=== PATIENT | female | born 1990 | race Caucasian/White ===

== ENCOUNTER 2017-03-07 11:52 | Emergency (ER) | payer OTHER ==
[~2017-03-07] VITALS: Ht 160 cm; Wt 69.3 kg
[~2017-03-07 11:52] MED LIST: BUSP5 PO; Z.0.BCPILL PO
[2017-03-07 11:57] VITALS: BP 133/86; PULSE 102; RESP 16; TEMP 98.9; O2SAT 100
[2017-03-07] MEDS ORDERED: LEXA5TAB PO (12:11)
[2017-03-07] MEDS ORDERED: BIRTH CONTROL (12:11)
[2017-03-07] MEDS ORDERED: [UNRECOGNIZED DRUG - OTHER] PO (12:11)
--- NOTE | 2017-03-07 12:15 | PD ---
HPI Chief Complaint: Abdominal Pain Time Seen by Provider: 12:04 Travel History International Travel<30 days: No Contact w/Intl Traveler<30days: No Traveled to known affect area: No History of Present Illness HPI 27 y/o female presents with bilateral lower quadrant abdominal pain and nausea. She states with her IBS she typically has diarrhea. She states she was referred from an urgent care for possible appendicitis. She states that she has no other concurrent complaints. The pain also comes around from her low back. She states that at the urgent care and they told her she had blood in her urine but she hasn't noticed any. She states that her last menstrual cycle was 2 months ago but with her control she only gets it every 3 months. She denies specific modifying factors. PFSH Past Medical History Anxiety: Yes Gastrointestinal Disorders: Yes (ibs) ?: Not Social History Alcohol Use: Yes (occ) Tobacco Use: No Substance Use: Yes (MARIJUANA) Allergies-Medications (Allergen,Severity, Reaction): Coded Allergies: No Known Allergies (Unverified , 03/07/17) Reported Meds & Prescriptions Reported Meds & Active Scripts Active Reported [ Control] [Vybrizine] 100 Mg PO DAILY Lexapro (Escitalopram Oxalate) 5 Mg Tab 5 Mg PO DAILY Review of Systems Except as stated in HPI: all other systems reviewed are Neg Physical Exam Narrative GENERAL: Well-nourished, well-developed patient. SKIN: Warm and dry. HEAD: Normocephalic and atraumatic. EYES: No injection or drainage. ENT: No nasal drainage noted. NECK: Supple, trachea midline. CARDIOVASCULAR: Regular rate and rhythm RESPIRATORY: no increased effort. No accessory muscle use. GASTROINTESTINAL: Abdomen soft, non-tender, nondistended. NEUROLOGICAL: Awake and alert. Motor and sensory grossly within normal limits. Normal speech. Data Data Last Documented VS Vital Signs Date Time Temp Pulse Resp B/P Pulse Ox O2 Delivery O2 Flow Rate FiO2 03/07/17 11:57 98.9 102 16 133/86 100 Orders Complete Blood Count With Diff (03/07/17 12:04) Comprehensive Metabolic Panel (03/07/17 12:04) Urinalysis - C+S If Indicated (03/07/17 12:04) Lipase (03/07/17 12:04) Ct Abd/Pel W/O Iv Contrast (03/07/17 ) Iv Access Insert/Monitor (03/07/17 12:04) Ed Urine Pregnancytest Poc (03/07/17 12:04) Labs Laboratory Tests Test 03/07/17 12:30 White Blood Count 8.2 TH/MM3 Red Blood Count 4.48 MIL/MM3 Hemoglobin 13.4 GM/DL Hematocrit 38.0 % Mean Corpuscular Volume 84.7 FL Mean Corpuscular Hemoglobin 29.8 PG Mean Corpuscular Hemoglobin 35.2 % Concent Red Cell Distribution Width 12.4 % Platelet Count 222 TH/MM3 Mean Platelet Volume 7.8 FL Neutrophils (%) (Auto) 88.0 % Lymphocytes (%) (Auto) 4.9 % Monocytes (%) (Auto) 4.0 % Eosinophils (%) (Auto) 0.3 % Basophils (%) (Auto) 2.8 % Neutrophils # (Auto) 7.3 TH/MM3 Lymphocytes # (Auto) 0.4 TH/MM3 Monocytes # (Auto) 0.3 TH/MM3 Eosinophils # (Auto) 0.0 TH/MM3 Basophils # (Auto) 0.2 TH/MM3 CBC Comment DIFF FINAL Differential Comment Urine Color YELLOW Urine Turbidity CLEAR Urine pH 6.0 Urine Specific [place] 1.026 Urine Protein NEG mg/dL Urine Glucose (UA) NEG mg/dL Urine Ketones NEG mg/dL Urine Occult Blood SMALL Urine Nitrite NEG Urine Bilirubin NEG Urine Leukocyte Esterase NEG Urine RBC 4-9 /hpf Urine WBC 0-2 /hpf Urine Squamous Epithelial 0-5 /hpf Cells Microscopic Urinalysis Comment CULT NOT INDICATED Sodium Level 137 MEQ/L Potassium Level 3.9 MEQ/L Chloride Level 104 MEQ/L Carbon Dioxide Level 24.9 MEQ/L Anion Gap 8 MEQ/L Blood Urea Nitrogen 12 MG/DL Creatinine 0.71 MG/DL Estimat Glomerular Filtration 97 ML/MIN Rate Random Glucose 113 MG/DL Calcium Level 8.4 MG/DL Total Bilirubin 0.5 MG/DL Aspartate Amino Transf 15 U/L (AST/SGOT) Alanine Aminotransferase 23 U/L (ALT/SGPT) Alkaline Phosphatase 68 U/L Total Protein 7.1 GM/DL Albumin 3.4 GM/DL Lipase 95 U/L MDM Medical Decision Making Medical Screen Exam Complete: Yes Emergency Medical Condition: Yes Medical Record Reviewed: Yes (pmh confirmed) Interpretation(s) point of care test is negative Last 24 hours Impressions Abdomen/Pelvis CT 03/07/17 0000 Signed Impressions: Service Date/Time: Tuesday, March 07, 2017 13:09 - CONCLUSION: Negative exam. No acute intraperitoneal or pelvic process to explain current clinical symptoms. Issa Cosby MD CBC & BMP Diagram 03/07/17 12:30 Differential Diagnosis Gastroenteritis, diverticulitis, stone, UTI, cyst, , atypical appendicitis Narrative Course 27-year-old female with one-day history of lower abdominal pain and nausea will check workup to rule out emergent process with blood work, urine, CT and reevaluate ed workup no acute, Patient denies any new complaints, all questions answered. Patient knows that follow up is incumbent on them and to return to the emergency room immediately if new or worsening symptoms develop. Patient given strict return precautions, vitals reviewed and are normal, agrees to further workup as an outpatient. Diagnosis Primary Impression: Abdominal pain Qualified Code: R10.30 - Lower abdominal pain Patient Instructions: General Instructions Additional Instructions: return as needed, tylenol as needed, follow with primary friday Med/Other Pt SpecificInfo: Prescription(s) given Disposition: DISCHARGE HOME Condition: Stable Arlin Castro MD Mar 07, 2017 12:15
[2017-03-07 12:40] LABS: AUTOMATED NEUTROPHIL # 7.3 TH/MM3 (1.8-7.7); BASOPHIL # 0.2 TH/MM3 (0-0.2); BASOPHIL % 2.8 % (0.0-2.0); EOSINOPHIL % 0.3 % (0.0-4.0); HEMO FLAGS DIFF FINAL; LYMPH % 4.9 % (9.0-44.0); LYMPHOCYTE # 0.4 TH/MM3 (1.0-4.8); MEAN CELL VOLUME 84.7 FL (80.0-100.0); MEAN CORPUSCULAR HEMOGLOBIN 29.8 PG (27.0-34.0); MEAN CORPUSCULAR HGB CONC 35.2 % (32.0-36.0); PLATELET COUNT 222 TH/MM3 (150-450); RED BLOOD COUNT 4.48 MIL/MM3 (4.00-5.30); RED CELL DISTRIBUTION WIDTH 12.4 % (11.6-17.2); WHITE BLOOD COUNT 8.2 TH/MM3 (4.0-11.0)
[2017-03-07 12:42] LABS: BLOOD, URINE SMALL (NEG); GLUCOSE,URINE NEG (NEG); KETONE, URINE NEG (NEG); NITRITE,URINE NEG (NEG)
[2017-03-07 12:48] LABS: CHLORIDE 104 MEQ/L (98-107); POTASSIUM 3.9 MEQ/L (3.5-5.1); SODIUM (NA) 137 MEQ/L (136-145)
[2017-03-07 12:52] LABS: ANION GAP 8 MEQ/L (5-15); BICARBONATE 24.9 MEQ/L (21.0-32.0); BLOOD UREA NITROGEN 12 MG/DL (7-18); URINE COLOR YELLOW (YELLW/STRAW)
[2017-03-07 12:53] LABS: COMMENT (UR) CULT NOT INDICATED; CULTURE IF INDICATED CULT NOT INDICATED; SQUAMOUS EPITHELIAL CELL URINE 0-5 /hpf (0-5); WBC, URINE 0-2 /hpf (0-5)
[2017-03-07 12:54] LABS: ALT (GPT) 23 U/L (10-53); AST (GOT) 15 U/L (15-37)
[2017-03-07 12:55] LABS: GLOMERULAR FILTRATION RATE 97 ML/MIN (>89)
[2017-03-07 12:56] LABS: TOTAL BILIRUBIN ADULT 0.5 MG/DL (0.2-1.0)
[2017-03-07 12:57] LABS: ALKALINE PHOSPHATASE 68 U/L (45-117)
--- NOTE | 2017-03-07 13:43 | RADHPO ---
EXAM DATE/TIME: 03/07/2017 13:09 [facility] COMPARISON: No previous studies available for comparison. INDICATIONS : Bilateral lower quadrant pain and nausea. ORAL CONTRAST: No oral contrast ingested. RADIATION DOSE: 8.14 CTDIvol (mGy) MEDICAL HISTORY : None SURGICAL HISTORY : None. ENCOUNTER: Initial ACUITY: 1 day PAIN SCALE: 2/10 LOCATION: Bilateral lower quadrant TECHNIQUE: Volumetric scanning of the abdomen and pelvis was performed. Using automated exposure control and ad justment of the mA and/or kV according to patient size, radiation dose was kept as low as reasonably achievable to obtain optimal diagnostic quality images. FINDINGS: LOWER LUNGS: The visualized lower lungs are clear. LIVER: Homogeneous density without lesion. There is no dilation of the biliary tree. No calcified gallston es. SPLEEN: Normal size without lesion. PANCREAS: Within normal limits. KIDNEYS: Normal in size and shape. There is no mass, stone, or hydronephrosis. ADRENAL GLANDS: Within normal limits. VASCULAR: There is no aortic aneurysm. BOWEL/MESENTERY: The stomach, small bowel, and colon demonstrate no acute abnormality. There is no free intraperitone al air or fluid. Retrocecal appendix is identified and is radiographically normal. ABDOMINAL WALL: Within normal limits. RETROPERITONEUM: There is no lymphadenopathy. BLADDER: No wall thickening or mass. REPRODUCTIVE: Within normal limits. INGUINAL: There is no lymphadenopathy or hernia. MUSCULOSKELETAL: Within normal limits for patient age. CONCLUSION: Negative exam. No acute intraperitoneal or pelvic process to explain current clinical symptoms. Issa Cosby MD on March 07, 2017 at 13:30 Board Certified Radiologist. This report was verified electronically.
== END 2017-03-07 14:19 | disposition home or self-care (01) ==
LOC: PHED 11:52
DX: R10.30 Lower abdominal pain, unspecified (principal); R11.0 Nausea; M54.5 Low back pain; Z86.59 Personal history of other mental and behavioral disorders; Z87.19 Personal history of other diseases of the digestive system
CPT/HCPCS: 74176; 80053; 81001; 83690; 84703; 85025